=== PATIENT | male | born 1955 | race Caucasian/White ===

== ENCOUNTER → 2021-09-16 09:22 | Outpatient (BNVA) | payer OTHER, SELFPAY | PROVIDERS: PCP Internal Medicine; Visit Provider Physician Assistant | DX: Z13.89 Encounter for screening for other disorder (principal) ==

== ENCOUNTER → 2021-09-18 12:48 | Outpatient (BNVA) | payer OTHER, SELFPAY | PROVIDERS: PCP Internal Medicine; Visit Provider Physician Assistant | DX: Z13.89 Encounter for screening for other disorder (principal) ==

== ENCOUNTER → 2021-10-15 09:53 | Outpatient (BNVA) | payer OTHER, SELFPAY | PROVIDERS: PCP Internal Medicine; Referring Provider Internal Medicine; Visit Provider Physician Assistant | DX: E66.9 Obesity, unspecified (principal) ==

== ENCOUNTER 2021-11-05 07:48 | Outpatient (REF) | payer MEDICARE, SELFPAY | END 2021-11-05 07:49 | disposition home or self-care (01) | LOC: HO.US 07:48 | PROVIDERS: PCP Internal Medicine; Visit Provider Physician Assistant | DX: Z13.89 Encounter for screening for other disorder (principal) ==

== ENCOUNTER → 2021-12-07 14:58 | Outpatient (BNVA) | payer OTHER, MEDICARE, SELFPAY | PROVIDERS: PCP Internal Medicine; Visit Provider Counselor Mental Health | DX: F43.20 Adjustment disorder, unspecified (principal); E66.9 Obesity, unspecified; Z90.3 Acquired absence of stomach [part of] | CPT/HCPCS: 90791 ==

== ENCOUNTER 2021-12-15 06:32 | Outpatient (REF) | payer MEDICARE, SELFPAY ==
--- NOTE | ~2021-12-15 | XR_ITS ---
EXAMINATION: XR CHEST CLINICAL INFORMATION: Vasquez's esophagus without dysplasia COMPARISON: None TECHNIQUE: 2 views of the chest were obtained. FINDINGS: No significant abnormality is noted involving the heart, lungs, mediastinum, bony thorax or soft tissues. XR/XR chest 2V IMPRESSION: Unremarkable chest examination.
[2021-12-15 06:45] LABS: MANUAL DIFF FLAG NO
--- NOTE | 2021-12-15 07:01 | ECG_ITS ---
Test Reason : barretts esophagus Blood Pressure : / mmHG Vent. Rate : 060 BPM Atrial Rate : 060 BPM P-R Int : 174 ms QRS Dur : 092 ms QT Int : 404 ms P-R-T Axes : 052 022 014 degrees QTc Int : 404 ms Normal sinus rhythm Normal ECG No previous ECGs available Referred By: [place]ia Carreon Electronically Signed By:Shailesh Snider
[2021-12-15 07:27] LABS: Basophils Absolute Auto 0.1 X10*3/uL (0.0-0.2); Basophils Percent Auto 0.8 % (0-2); Eosinophils Absolute Auto 0.4 X10*3/uL (0.0-0.4); Eosinophils Percent Auto 5.1 % (0-4); Hematocrit 42.6 % (42.0-52.0); Hemoglobin 14.2 g/dl (14.0-18.0); Imm Gran Abs Auto 0.01 X10*3/uL (0.00-0.03); Imm Gran Pct Auto 0.1 % (0.0-0.4); Lymphocytes Absolute Auto 2.2 X10*3/uL (1.2-4.9); Lymphocytes Percent Auto 30.8 % (20-40); Mean Corpuscular HGB Conc 33.3 g/dl (31.0-36.0); Mean Corpuscular Hemoglobin 30.9 pg (27.0-33.0); Mean Corpuscular Volume 92.8 fL (80.0-98.0); Mean Platelet Volume 11.8 fL (9.4-12.4); Monocytes Absolute Auto 0.7 X10*3/uL (0.1-1.2); Monocytes Percent Auto 9.4 % (2-11); Neutrophils Absolute Auto 3.9 x10*3/uL (2.0-8.3); Neutrophils Percent Auto 53.8 % (45-73); Platelet Count 206 X10*3/uL (160-400); Red Blood Count 4.59 X10*6/uL (4.60-5.80); Red Cell Distribution Width 12.7 % (11.0-16.0); White Blood Count 7.2 X10*3/uL (4.8-10.8)
[2021-12-15 07:57] LABS: Estimated Average Glucose 105 mg/dL; Hemoglobin A1c % 5.3 %
[2021-12-15 08:03] LABS: Alanine Aminotransferase 23 U/L (0-40); Albumin Level 4.3 g/dL (3.5-5.0); Alkaline Phosphatase 70 U/L (39-117); Anion Gap 12 (12-20); Aspartate Amino Transferase 24 U/L (5-37); Bilirubin Total 0.5 mg/dL (0.0-1.0); Blood Urea Nitrogen 24 mg/dL (9-16); C Reactive Protein 0.14 mg/dL (< or = 0.50); Calcium 9.6 mg/dL (8.4-10.2); Carbon Dioxide 28 mmol/L (22-29); Chloride 106 mmol/L (96-108); Cholesterol 155 mg/dL; Estimated Glomerular Filt Rate 55; Glucose Random 102 mg/dL (60-115); HDL Cholesterol 43 mg/dL; Iron 120 mcg/dL (45-160); LDL Cholesterol Calculated 88 mg/dl; Percent Iron Saturation 41 % (15-50); Potassium 4.5 mmol/L (3.3-5.1); Sodium 141 mmol/L (135-145); Total Iron Binding Capacity 294 mcg/dL (228-428); Total Protein 6.8 g/dL (6.5-8.0); Triglycerides 123 mg/dL; Unsaturated Iron Binding 174 ug/dL
[2021-12-15 08:13] LABS: Ferritin 173 ng/mL (20-250); TSH reflex Free T4 2.34 uIU/mL (0.32-4.0); Vitamin D 25-OH Total 30.4 ng/mL (>30)
[2021-12-15 08:33] LABS: Folate 6.1 ng/mL (> or = 4.0); Vitamin B12 548 pg/mL (200-900)
[2021-12-15 08:47] LABS: Insulin 8 uU/mL (2-29)
[2021-12-16 12:56] LABS: Calcium (PTHI) 9.9 mg/dL (8.6-10.3); PTHI 32 pg/mL (16-77)
[2021-12-20 12:17] LABS: Vitamin B1 <6 nmol/L (8-30)
[2021-12-21 16:32] LABS: Zinc 75 mcg/dL (60-130)
[2021-12-23 11:41] LABS: Vitamin A 61 mcg/dL (38-98)
== END 2021-12-15 06:33 | disposition home or self-care (01) ==
LOC: HO.XRAY 06:32
PROVIDERS: PCP Internal Medicine; Visit Provider Physician Assistant
DX: Z01.818 Encounter for other preprocedural examination (principal); K21.9 Gastro-esophageal reflux disease without esophagitis; K22.70 Barrett's esophagus without dysplasia; Z90.3 Acquired absence of stomach [part of]
CPT/HCPCS: 36415; 71046; 80053; 80061; 82306; 82607; 82728; 82746; 83036; 83525; 83540; 83970; 84425; 84443; 84590; 84630; 85025; 86140; 93005

== ENCOUNTER → 2021-12-17 09:44 | Outpatient (BNVA) | payer MEDICARE, SELFPAY | PROVIDERS: PCP Internal Medicine; Visit Provider Dietitian, Registered | DX: E66.9 Obesity, unspecified (principal); Z68.33 Body mass index [BMI] 33.0-33.9, adult; Z98.84 Bariatric surgery status; Z71.3 Dietary counseling and surveillance | CPT/HCPCS: 97802 ==

== ENCOUNTER 2021-12-22 08:51 | Outpatient (REF) | payer MEDICARE, SELFPAY ==
[2021-12-24 14:10] LABS: H Pylori Breath Test Negative (Negative)
== END 2021-12-22 08:52 | disposition home or self-care (01) ==
LOC: CF 08:51
PROVIDERS: PCP Internal Medicine; Visit Provider Physician Assistant
DX: Z01.818 Encounter for other preprocedural examination (principal); K21.9 Gastro-esophageal reflux disease without esophagitis; E66.9 Obesity, unspecified; K22.70 Barrett's esophagus without dysplasia; Z90.3 Acquired absence of stomach [part of]
CPT/HCPCS: 36415; 83013; 99211; 99212

== ENCOUNTER 2022-01-06 07:51 | Outpatient (REF) | payer MEDICARE, SELFPAY ==
--- NOTE | ~2022-01-06 | FL_ITS ---
EXAMINATION: XR GI SERIES CLINICAL INFORMATION: Gastric surgery. COMPARISON: None. TECHNIQUE: Routine upper GI air-contrast study was performed in upright and lying position. FINDINGS: Following oral administration of thick barium and effervescent granules, there is normal propagation of bolus from the oral cavity through the pharynx an esophagus into the stomach. There are secondary and tertiary peristalsis in the distal esophagus but no obstruction seen. Focal mucosal thickening along the anterior mid esophagus is noted resulting in filling defect. This could be muscular hypertrophy due to prominent secondary and tertiary peristalsis. The GE junction is widely patent. There are gastric sleeve surgical changes with a paraesophageal small hiatal hernia. Mild gastroesophageal reflux seen in supine position. The rest of the visualized stomach, duodenal bulb and the sweep are normal. The mucosal pattern is normal. FLUOROSCOPY TIME: 2.5 minutes. DOSE AREA PRODUCT: 45.832 uGy-m2 (microgray-meter squared). FL/FL upper GI series IMPRESSION: Patent esophagus with prominent secondary and tertiary peristalsis. There is a small transitional filling defect or mural thickening in mid esophagus which could be secondary to muscular hypertrophy. No persistent defects seen. Gastric sleeve surgery with a paraesophageal moderate-sized hiatal hernia and mild reflux.
--- NOTE | ~2022-01-06 | US_ITS ---
EXAMINATION: US COMPLETE ABDOMEN WITH LIVER ELASTOGRAPHY CLINICAL INFORMATION: Gallstone. COMPARISON: Previous CT of the abdomen and pelvis November 2020. TECHNIQUE: Real-time imaging of the abdominal viscera. Noninvasive ultrasound liver fibrosis assessment is performed using Mildred ElastPQ point quantification shear wave elastography (2D-SWE) with a C5-2 MHz transducer. Multiple elastography samples are obtained. FINDINGS: PANCREAS: Not well visualized due to bowel gas. ABDOMINAL AORTA: The upper abdominal aorta is not well visualized due to bowel gas. The mid and distal abdominal aorta is normal in caliber. INFERIOR VENA CAVA: Visualized portions are normal. LIVER: Normal. The liver demonstrates normal size, contour and echogenicity. No focal lesion or intrahepatic biliary duct dilatation. The right lobe measures 18.5 cm in length. The left lobe measures 6.5 cm in length. Portal flow is normal/hepatopedal. Shear wave liver elastography median stiffness is 1.4 m/s (reference: normal median stiffness is 1.3 m/s or less). IQR/median stiffness to assess sampling precision is 0.12 (reference: good quality data set is IQR/median stiffness of 0.15 or less). GALLBLADDER: Normal. The gallbladder is physiologically distended without evidence of stones, sludge, polyps, wall thickening or pericholecystic fluid. COMMON BILE DUCT: Normal in caliber measuring 0.2 cm in diameter. RIGHT KIDNEY: There is a small 9 x 8 x 4 mm cyst in the upper pole. No hydronephrosis. No renal calculi or mass. The kidney measures 11.4 cm in maximum dimension. LEFT KIDNEY: There are 3 small cysts in the mid and lower pole, largest measuring 1 cm. No hydronephrosis. No renal calculi or mass. The kidney measures 12.3 cm in maximum dimension. SPLEEN: Normal. The spleen measures 10.2 cm in maximum dimension. FREE FLUID: None. US/US abdomen comp w elastography IMPRESSION: 1. Normal-appearing gallbladder. No gallstones seen. Small bilateral renal cysts. Nonvisualization of the pancreas and aorta. 2. Liver elastography: Adequate liver sampling. In the absence of other known clinical signs, rules out compensated advanced chronic liver disease. REFERENCE: Society of Radiologists in Ultrasound Liver Stiffness Thresholds (2020): LIVER STIFFNESS THRESHOLDS: *Liver Stiffness equal or less than 1.3 m/s: High probability of being normal. *Liver Stiffness less than 1.7 m/s: In the absence of other known clinical signs, rules out compensated advanced chronic liver disease. *Liver Stiffness 1.7-2.1 m/s: Suggestive of compensated advanced chronic liver disease but need further test for confirmation. *Liver Stiffness over 2.1 m/s: Rules in compensated advanced chronic liver disease. *Liver Stiffness over 2.4 m/s: Suggestive of clinically significant portal hypertension. QUALITY OF DATA SET: *IQR/Median value equal or less than 0.15 implies a quality data set. *IQR/Median value over 0.15 implies a poor quality data set. SIGNIFICANT CHANGE FROM PRIOR EXAM: Significant change if liver stiffness measurement is 10% or greater from prior exam. OTHER CONSIDERATIONS: The stage of liver fibrosis may be overestimated in the setting of acute hepatitis, liver inflammation, elevated liver function tests, hepatic vascular congestion, obstructive cholestasis, non-fasting state, and infiltrative diseases such as amyloidosis and lymphoma. In some patients with NAFLD, the liver stiffness thresholds for compensated advanced chronic liver disease may be lower. In causes other than viral hepatitis and NAFLD, liver stiffness thresholds are not well established.
== END 2022-01-06 07:52 | disposition home or self-care (01) ==
LOC: HO.US 07:51
PROVIDERS: Visit Provider Surgery
DX: K80.20 Calculus of gallbladder without cholecystitis without obstruction (principal); E66.9 Obesity, unspecified; K21.9 Gastro-esophageal reflux disease without esophagitis; Z90.3 Acquired absence of stomach [part of]
CPT/HCPCS: 74240; 76705; 76981

== ENCOUNTER 2022-01-15 11:46 | Day surgery (SDC) | payer MEDICARE, SELFPAY ==
[2022-01-11 10:50] VITALS: BMI 33.0
--- NOTE | 2022-01-14 09:30 | P.CONAN_ITS ---
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 Family History Family History Father Diabetes Heart muscle disorder caused by another medical condition Mother Glaucoma High blood cholesterol Surgical History Surgical History H/O gastric sleeve Social History Social History Alcohol intake: former Patient Tobacco Use Status: Former Tobacco user Are you DNR?: No Advance Directives: No Advance Directives Information Provided: Yes Meds Allergies Allergy/AdvReac Type Severity Reaction Status Date / Time No Known Allergies Allergy Verified 12/22/21 09:14 Home Medications Medication Instructions Recorded Confirmed Last Taken Type albuterol sulfate 90 mcg/actuation 0 mcg inhalation 09/16/21 12/03/21 Unknown History aerosol inhaler atorvastatin 80 mg tablet 80 mg PO DAILY 09/16/21 12/03/21 Unknown History azelastine 137 mcg (0.1 %) nasal intranasal 09/16/21 12/03/21 Unknown History spray aerosol bupropion HCl 150 mg 24 hr tablet, 150 mg PO QAM 09/16/21 12/03/21 Unknown History extended release finasteride 5 mg tablet 5 mg PO DAILY 09/16/21 12/03/21 Unknown History fludrocortisone 0.1 mg tablet 0.1 mg PO DAILY 09/16/21 12/03/21 Unknown History fluticasone 500 mcg-salmeterol 50 1 ea PO BID 09/16/21 12/03/21 Unknown History mcg/dose blistr powdr for inhalation (Wixela Inhub) sertraline 100 mg tablet 100 mg PO DAILY 09/16/21 12/03/21 Unknown History lansoprazole 30 mg capsule,delayed 30 mg PO BID 12/03/21 12/03/21 Unknown History release Exam Exam Date and Time: January 14, 2022 0930 Height,Weight and Vital Signs: Height 5 ft 9 in Weight 101.605 kg Pertinent Lab Results Pertinent Lab Results: Laboratory Tests 12/15/21 12/15/21 06:43 06:43 WBC 7.2 Hgb 14.2 Hct 42.6 Plt Count 206 Sodium 141 Potassium 4.5 Chloride 106 Carbon Dioxide 28 BUN 24 H Creatinine 1.30 Narrative Narrative: EKG 11/2021 Vent. Rate : 060 BPM ? ? Atrial Rate : 060 BPM ?? P-R Int : 174 ms? QRS Dur : 092 ms ? ? QT Int : 404 ms ? ? ? P-R-T Axes : 052 022 014 degrees ?? QTc Int : 404 ms ? 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 Family History Family History Father Diabetes Heart muscle disorder caused by another medical condition Mother Glaucoma High blood cholesterol Family history of problems with anesthesia: No Surgical History Surgical History H/O gastric sleeve History of Problems with Anesthesia: No Social History Social History Alcohol intake: former Patient Tobacco Use Status: Former Tobacco user Are you DNR?: No Advance Directives: No Advance Directives Information Provided: Yes Meds Allergies Allergy/AdvReac Type Severity Reaction Status Date / Time No Known Allergies Allergy Verified 12/22/21 09:14 Home Medications Medication Instructions Recorded Confirmed Last Taken Type albuterol sulfate 90 mcg/actuation 0 mcg inhalation 09/16/21 12/03/21 Unknown History aerosol inhaler atorvastatin 80 mg tablet 80 mg PO DAILY 09/16/21 12/03/21 Unknown History azelastine 137 mcg (0.1 %) nasal intranasal 09/16/21 12/03/21 Unknown History spray aerosol bupropion HCl 150 mg 24 hr tablet, 150 mg PO QAM 09/16/21 12/03/21 Unknown History extended release finasteride 5 mg tablet 5 mg PO DAILY 09/16/21 12/03/21 Unknown History fludrocortisone 0.1 mg tablet 0.1 mg PO DAILY 09/16/21 12/03/21 Unknown History fluticasone 500 mcg-salmeterol 50 1 ea PO BID 09/16/21 12/03/21 Unknown History mcg/dose blistr powdr for inhalation (Wixela Inhub) sertraline 100 mg tablet 100 mg PO DAILY 09/16/21 12/03/21 Unknown History lansoprazole 30 mg capsule,delayed 30 mg PO BID 12/03/21 12/03/21 Unknown History release Exam Airway Mallampati Class: III TM Dist: >3cm Neck ROM: Full Assessment and Plan Assessment Anesthesia Assessment: Anesthesia Plan Discussed Final Anesthetic Review Family History of Problems with Anesthesia: No History of Problems with Anesthesia: No NPO: Yes ASA Class: III Final Preanesthetic Review: No Changes in Pt Med Stat, Meds/Allgs Chart Reviewed, Consent Obtained/Reviewed and Anes Risks/Benef Reviewed Patient Risk: Intermediate Procedure Risk: Low Anesthetic Plan Anesthetic Plan: MAC: Disposition: Standard PACU
--- NOTE | 2022-01-14 23:02 | MHC.SHP ---
Pre-Procedural Eval Section A Date of Service: 01/14/22 The patient is an INPATIENT: No The History & Physical has been completed within 30 days and I have reviewed it.: Yes Section B Chief Complaint: Bariatric surgery status Relevant Family History (Specify if Yes): No Relevant Social History: None Present Medications: see Short Stay Collaborative assessment Medical History: No relevant PMH History of Previous Operations: Relevant previous surgery/procedure and date(s) (sleeve gastrectomy) Allergies: Allergies Allergy/AdvReac Type Severity Reaction Status Date / Time No Known Allergies Allergy Verified 12/22/21 09:14 Review of Systems Sugical H&P ROS: Negative: Constitution, Cardiovascular, Respiratory, Neurological, Psychiatric, Hem-Onc, Allergic/Immunologic, Gastrointestinal, Genitourinary, Musculoskeletal, Integumentary, Endocrine and Eyes/Ears/Nose/Throat Exam Surgical H&P Exam: Normal: HEENT, Normal: Heart, Normal: Lungs, Normal: Extremities, Normal: Abdomen, Normal: Skin and Normal: Neurological Plan Diagnosis/Plan: Unchanged I have reviewed the history and physical and performed a pertinent physical examination on my patient. No changes have occurred unless specified.
[2022-01-15 12:01] VITALS: BP 110/92; PULSE 81; RESP 20; TEMP 36.6; O2SAT 97
[2022-01-15] MEDS: Lactated Ringers 1,000 ML 100 ML IVCONT (12:20)
--- NOTE | 2022-01-15 12:32 | P.BOP_ITS ---
Brief Operative Note Date of Service: 01/15/22 Pre-op diagnosis: GERD, paraesophageal hernia, s/p sleeve gastrectomy Post-op diagnosis: same Procedure: PROCEDURE DATE: 01/15/2022 PREOPERATIVE DIAGNOSIS: GERD, s/p sleeve gastrectomy POSTOPERATIVE DIAGNOSIS: ?Same as above. 1) moderate hiatal hernia, 2) gastric fundus redundancy, 3) incomplete antral resection PROCEDURE: [id number] with biopsies Surgeon: ?Tanmay Ramos M.D.. Ph.D. Pie Maker Machine: None ? Anesthesia: IV sedation Estimated blood loss: ?Minimal FINDINGS AND PROCEDURE: ? OPERATIVE INDICATIONS: ?The patient is a 66 year old male known to me who underwent a laparoscopic sleeve gastrectomy by Dr. Dueñas. The patient had inadequate weight loss and complains of severe GERD which has worsened after the sleeve gastrectomy.? Based on this information I recommended an upper endoscopy to evaluate the patient's symptoms. Risks and complications of the surgery were discussed with the patient in advance particularly the possibility of perforation or bleeding that may require surgical intervention. The patient understood the risks and was in agreement with the plan. ? PROCEDURE: After informed consent was obtained by the patient, the patient was ?transferred to the Operating Room and was placed in the supine position.? After successful induction of IV sedation, a mouth block was inserted and the patient was placed in the left lateral decubitus position. An upper endoscopy was performed next, the oropharynx and esophagus appeared within the normal limits. There was a 4cm hiatal hernia. There was retained food within the hiatal hernia suggestive of poor gastric emptying. The z-line was smooth. Two biopsies were obtained from the distal esophagus 2-3 cm proximal to the GE junction and two additional biopsies from the GE junction. The sleeve was entered and it appeared to be of normal size and even caliber. There was mild gastritis at distal antrum. There was no stricture or ulcer. Biopsies were obtained from the proximal sleeve as well as the distal antrum. The antrum was also incompletely resected. No significant bleeding was noted from any of the biopsy sites. The scope was then advanced into the duodenum which appeared to be normal as well. At that point the duodenum ?and the sleeve were decompressed and the scope was withdrawn from the patient's mouth. The patient extubated and was transferred in stable condition to the Recovery Room for further care. I was present and performed all steps of the procedure. There were no residents to assist with this case. Tanmay Ramos M.D., Ph.D. Surgeon: Stevenson Ramos MD Anesthesia: MAC Was an Pie Maker Machine used for this Procedure?: No Estimated blood loss (mL): 0 IV fluids (mL): 400 Urine output (mL): 0 (No Hinojosa to record) Pathology: other Condition: stable Disposition: PACU
[2022-01-15 14:08] VITALS: BP 108/61; PULSE 84; RESP 16; TEMP 36.3; O2SAT 98
[2022-01-15 14:23] VITALS: BP 112/70; PULSE 63; RESP 18; TEMP 36.3; O2SAT 95
[2022-01-15 14:38] VITALS: BP 118/71; PULSE 71; RESP 18; TEMP 36.3; O2SAT 95
== END 2022-01-15 14:58 | disposition home or self-care (01) ==
PROVIDERS: PCP Internal Medicine; Visit Provider Surgery
PROC: 0DJ08ZZ Inspection of Upper Intestinal Tract, Via Natural or Artificial Opening Endoscopic (ICD-10-PCS; CPT 43235; principal; 2022-01-15 13:00)
DX: K21.9 Gastro-esophageal reflux disease without esophagitis (principal); Z98.84 Bariatric surgery status; Z90.3 Acquired absence of stomach [part of]; K29.60 Other gastritis without bleeding; K44.9 Diaphragmatic hernia without obstruction or gangrene; E66.9 Obesity, unspecified; Z68.33 Body mass index [BMI] 33.0-33.9, adult; Z98.1 Arthrodesis status
CPT/HCPCS: 43239; 88305; 88342

== ENCOUNTER → 2022-01-18 08:14 | Outpatient (BNVA) | payer MEDICARE, SELFPAY | PROVIDERS: PCP Internal Medicine; Visit Provider Surgery | DX: E66.9 Obesity, unspecified (principal); Z68.33 Body mass index [BMI] 33.0-33.9, adult; E78.5 Hyperlipidemia, unspecified; K21.9 Gastro-esophageal reflux disease without esophagitis; R11.0 Nausea; Z01.818 Encounter for other preprocedural examination; G47.30 Sleep apnea, unspecified; Z71.3 Dietary counseling and surveillance | CPT/HCPCS: Q3014 ==

== ENCOUNTER 2022-02-02 08:43 | Inpatient (IN) | payer MEDICARE, SELFPAY ==
[2022-01-25 10:41] LABS: Basophils Absolute Auto 0.1 X10*3/uL (0.0-0.2); Basophils Percent Auto 1.2 % (0-2); Eosinophils Absolute Auto 0.4 X10*3/uL (0.0-0.4); Eosinophils Percent Auto 6.9 % (0-4); Hematocrit 41.9 % (42.0-52.0); Hemoglobin 14.4 g/dl (14.0-18.0); Imm Gran Abs Auto 0.01 X10*3/uL (0.00-0.03); Imm Gran Pct Auto 0.2 % (0.0-0.4); Lymphocytes Absolute Auto 1.8 X10*3/uL (1.2-4.9); Lymphocytes Percent Auto 30.5 % (20-40); MANUAL DIFF FLAG SCAN; Mean Corpuscular HGB Conc 34.4 g/dl (31.0-36.0); Mean Corpuscular Hemoglobin 31.6 pg (27.0-33.0); Mean Corpuscular Volume 92.1 fL (80.0-98.0); Monocytes Absolute Auto 0.6 X10*3/uL (0.1-1.2); Neutrophils Percent Auto 51.2 % (45-73); PLT CLUMP 1; Red Blood Count 4.55 X10*6/uL (4.60-5.80); Red Cell Distribution Width 13.3 % (11.0-16.0); SCAN SMEAR FLAG 1
[2022-01-25 11:02] LABS: Prothrombin Time 11.1 SEC (10.0-13.1)
[2022-01-25 11:05] LABS: Partial Thromboplastin Time 35.6 SEC (26.0-36.4)
[2022-01-25 11:09] LABS: Platelet Count 192 X10*3/uL (160-400); White Blood Count 5.9 X10*3/uL (4.8-10.8)
[2022-01-25 11:10] LABS: SLIDE REVIEW VERIFIED
[2022-01-25 11:18] LABS: Alanine Aminotransferase 31 U/L (0-40); Albumin Level 4.3 g/dL (3.5-5.0); Alkaline Phosphatase 68 U/L (39-117); Anion Gap 14 (12-20); Aspartate Amino Transferase 27 U/L (5-37); Bilirubin Total 0.4 mg/dL (0.0-1.0); Blood Urea Nitrogen 20 mg/dL (9-16); C Reactive Protein 0.11 mg/dL (< or = 0.50); Calcium 9.2 mg/dL (8.4-10.2); Carbon Dioxide 25 mmol/L (22-29); Chloride 108 mmol/L (96-108); Cholesterol 166 mg/dL; Estimated Glomerular Filt Rate > 60; Glucose Random 96 mg/dL (60-115); HDL Cholesterol 50 mg/dL; LDL Cholesterol Calculated 100 mg/dl; Potassium 4.5 mmol/L (3.3-5.1); Sodium 142 mmol/L (135-145); Total Protein 6.7 g/dL (6.5-8.0); Triglycerides 81 mg/dL
[2022-01-25 11:38] LABS: Estimated Average Glucose 103 mg/dL; Hemoglobin A1c % 5.2 %
[2022-01-25 11:48] LABS: TSH reflex Free T4 1.48 uIU/mL (0.32-4.0)
[2022-01-25 12:23] LABS: Insulin 10 uU/mL (2-29)
[2022-01-27 11:02] LABS: Calcium (PTHI) 9.2 mg/dL (8.6-10.3); PTHI 82 pg/mL (16-77)
[2022-01-27 12:10] VITALS: BMI 32.5
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
--- NOTE | 2022-01-29 23:04 | MHC.SHP ---
Pre-Procedural Eval Section A Date of Service: 01/29/22 The patient is an INPATIENT: Yes The History & Physical has been completed within 30 days and I have reviewed it.: Yes Section B Chief Complaint: obesity Relevant Family History (Specify if Yes): No Relevant Social History: None Present Medications: None Medical History: No relevant PMH History of Previous Operations: Relevant previous surgery/procedure and date(s) (Laparoscopic sleeve gastrectomy) Allergies: Allergies Allergy/AdvReac Type Severity Reaction Status Date / Time No Known Allergies Allergy Verified 12/22/21 09:14 Review of Systems Sugical H&P ROS: Negative: Constitution, Cardiovascular, Respiratory, Neurological, Psychiatric, Hem-Onc, Allergic/Immunologic, Gastrointestinal, Genitourinary, Musculoskeletal, Integumentary, Endocrine and Eyes/Ears/Nose/Throat Exam Surgical H&P Exam: Normal: HEENT, Normal: Heart, Normal: Lungs, Normal: Extremities, Normal: Abdomen, Normal: Skin and Normal: Neurological Plan Diagnosis/Plan: Unchanged I have reviewed the history and physical and performed a pertinent physical examination on my patient. No changes have occurred unless specified.
[2022-02-02] VITALS (13 sets, daily range): BP systolic 129–163; BP diastolic 63–92; PULSE 74–102; RESP 10–18; TEMP 36.4–36.9; O2SAT 92–99
[2022-02-02 09:03] LABS: COVID-19 Test Negative (Negative); IDNOW Serial# 16C4AD1C
[2022-02-02] MEDS: Lactated Ringers 1,000 ML 100 ML IVCONT ×2 (09:08→14:00)
--- NOTE | 2022-02-02 10:04 | PM.OP ---
Brief Operative Note Date of Service: 02/02/22 Pre-op diagnosis: Severe obesity and comorbidities (see below) Post-op diagnosis: same Procedure: INITIAL PATIENT BMI ON PRESENTATION AT OUR OFFICE: 35.8 kg/m2 LAST BMI BEFORE SURGERY: 32.3 kg/m2 COMORBIDITIES: Sleep apnea, GERD, diaphragmatic hernia, hyperlipidemia, asthma, depression, anxiety, PTSD, BPH The patient presented to the Weight Management Program with significant obesity that was negatively impacting the patient's comorbidities as listed above. The program is a phased program with a special focus on preoperative medical weight management to promote substantial weight loss and prepare the patients for the second phase of the program: bariatric surgery. The patient participated in an intensive weekly lifestyle intervention and exercise program during which the patient has lost between the initial office visit and the last preoperative visit 24.9lbs, or 10.26% of initial actual body weight. It was deemed appropriate for the patient to now have bariatric surgery. In light of the current Covid-19 pandemic and the well documented strong association of obesity and increased risk of worse outcomes if infected with Covid-19 (REFERENCES:https://pubmed.ncbi.nlm.nih.gov/66778804/, https://pubmed.ncbi.nlm.nih.gov/07833000/), any delay in undergoing bariatric surgery may lead to the patient's worsening health condition and increased risk of more severe Covid-19 disease if infected. In addition a recent study from [facility] published in [employer] on 05/25/2021 ([email or web address]) found that, among patients with obesity, substantial weight loss achieved with surgery was associated with improved outcomes of COVID-19 infection. The findings suggest that obesity can be a modifiable risk factor for the severity of COVID-19 infection. In addition, the patient met the BMI-criteria for bariatric surgery based on the BMI on initial presentation. The patient should not be penalized for achieving such weight loss because it is not sustainable long-term without surgical intervention and it was achieved in preparation for bariatric surgery under my direction and based on my published research ([email or web address]).[email or web address] and [email or web address].[email or web address]/article/[email or web address]/pdf) that a 10% preoperative weight loss improves long-term weight loss after surgery and reduces perioperative complications. Insurance carriers such as [facility] have endorsed my recommendations and have included in their policies criteria to include a 10% preoperative weight loss requirement. PROCEDURE: Esophago-gastroscopy, laparoscopic lysis of adhesions INDICATIONS: This is a 66 year-old male who was electively scheduled for laparoscopic, possibly open sleeve gastrectomy revision. The patient has a previous sleeve gastrectomy at [facility] with Dr. Dueñas. Preoperative work-up including an UGI and EGD is suggestive of a very large proximal pouch of retained gastric fundus as well as incomplete distal antral resection. The objective of this operation is to redo the sleeve. The risks and complications of the procedure were discussed with the patient in advance, particularly the possibility of ; pulmonary embolism; staple line leak; bleeding; GERD; cardiac, pulmonary, or renal complications; as well as long-term problems such as insufficient weight loss, vitamin deficiency, strictures, or ulcers. The patient understood all the risks, and was in agreement to proceed with surgery. DESCRIPTION OF PROCEDURE: After informed consent was obtained from the patient, the patient was given preoperative antibiotics, and was transferred to the operating room. After successful induction of general anesthesia, pneumatic compression devices were placed on both lower extremities. An upper endoscopy was performed next. The oropharynx and esophagus appeared to be within normal limits. There was no significant diaphragmatic hernia present. The stomach was entered. Then after all fluid and air were suctioned and the stomach was fully decompressed, the scope was withdrawn and secured in the mid esophagus. The patient was then prepped and draped in the usual sterile manner, and abdominal access was established at the right upper quadrant with the Omar technique. A 12 mm blunt port was inserted, and the abdomen was insufflated with CO2 to a pressure of 15 mmHg. Under direct visualization, additional ports were placed, specifically two 5 mm Versi-step ports to the left upper quadrant, and a 5 mm Versi-Step port to the right upper quadrant. 1% lidocaine plain was used to infiltrate all port sites as well as all fascia defects. There were extensive adhesions in the abdomen from previous sleeve gastrectomy involving the left lobe of the liver, the omentum and the anterior abdominal wall. Those were lysed completely with the ultrasonic device (Thunderbeat).. Following that, the patient was placed in a steep reverse Trendelenburg position. An additional 5 mm port was placed to the right flank for the Mediflex retractor that was used to retract the left lobe of the liver. The gastro-esophageal fat pad was opened with the ultrasonic device (Thunderbeat, Olympus) and the anterior esophagus and hiatus were exposed. The angle of His was opened with the ultrasonic device the fundus of the stomach from any diaphragmatic and splenic attachments. I then opened the gastrocolic ligament between the transverse colon and the greater curvature of the stomach with the ultrasonic device to enter the lesser sac. This was very difficult as there were dense adhesions from previous sleeve gastrectomy. The posterior gastric wall was attached to the pancreas and extensive and tedious dissection was required to free the stomach. There was an area of the posterior stomach densely adherent to the retrogastric tissues. I encountered some bleeding which was quickly controlled. However there was no clear plane of dissection and this area was left attached posteriorly. The dissection continued all the way to the angle of His until the left kriss was completely dissected at its entirety. There were extremely thick adhesions which made dissection very difficult without clear plain of dissection Adhesiolysis took approximately 120 min to complete with a total operative time of 4 hours. The right kriss was mobilized first and I was able to dissect the esophagus completely from the right kriss in 180 degree area. There was no significant diaphragmatic hernia present. Complete dissection of the left kriss was not possible due to dense adhesions between the left kriss and the esophagus without clear plane. Because the esophagus was not completely dissected and additionally I was not able to dissect completely the sleeve from posterior retrogastric attachments, further resection of the redundant stomach was not made. An upper endoscopy was performed. There was no injury in the esophagus or stomach. At that point the gastroscope was withdrawn from the patient?s mouth while we were decompressing the bowel and the stomach from any remaining air. I looked into the lesser sac to see how the sleeve was situating and it was situating well. There was no bleeding from the areas of dissection,, spleen, or short gastric vessels. The Mediflex retractor was removed, and the undersurface of the liver was inspected and there was no bleeding. The patient was placed in supine position. I closed the fascial defect of the 12 mm port site with a figure of eight #1 Polysorb suture. Then 30cc Ropivacaine plain with 10 mg of Dexamethasone were used to infiltrate the fascial closure as well as all skin incisions. At this point, the abdomen was deflated, all ports were removed under direct vision, and no bleeding was noted from any of the port sites. The skin incisions were irrigated with saline and were closed with 4-0 absorbable monofilament sutures. Steri-Strips and OpSites were used to cover all incisions. The patient was extubated and was transferred in stable condition to the recovery room for further care. Tanmay Ramos MD, PhD, FACS Surgeon: Stevenson Ramos MD Anesthesia: GETA, local and other (TAP block ) Was an Dispatch Supervisor used for this Procedure?: Yes Dispatch Supervisor: [place] Carreon Estimated blood loss (mL): 10 IV fluids (mL): 2,500 Urine output (mL): 0 (No Hinojosa to record) Pathology: none sent Condition: stable Disposition: PACU
--- NOTE | 2022-02-02 10:06 | PHA.MEDREC ---
Pharmacy Consult ? Medication Reconciliation Pharmacy has completed the medication reconciliation. Reviewed med rec done by nursing
--- NOTE | 2022-02-02 10:08 | PM.PNGS ---
Subjective Subjective Date of Service: 02/03/22 Interval history: Patient has mild incisional pain, but was able to ambulate and use the incentive spirometer. He is tolerating phase 1 bariatric diet Physical Exam Vital Signs: Vital Signs: Last Vital Signs Temp 98.1 F 02/02/22 09:12 Pulse 74 02/02/22 09:12 Resp 18 02/02/22 09:12 BP 129/79 02/02/22 09:12 Pulse Ox 98 02/02/22 09:12 O2 Del Method 02/02/22 09:12 BMI result Body Mass Index 32.5 GI: Inspection: Yes normal to inspection, Yes incision (clean, dry and intact) and Yes obesity Extrem: Right lower extremity: normal to inspection (no calf tenderness) Left lower extremity: normal to inspection (no calf tenderness) Objective Data Active Medications Albuterol Sulfate (Albuterol Sulfate (0.083%) 2.5 Mg/3 Ml Vial.Neb) 2.5 mg INHALE ONCE PRN PRN Reason: Shortness of Breath/Wheezing Lactated Ringer's (Lr) 1,000 mls @ 100 mls/hr IVCONT .Q10H [facility] Last Admin: 02/02/22 09:08 Dose: 100 mls/hr Documented By: SUNI Lactated Ringer's (Lr) 1,000 mls @ 999 mls/hr IV .Q1H1M [facility] Stop: 02/02/22 10:45 Labs CBC & Chem 7: 02/03/22 05:20 02/03/22 05:20 Labs: Laboratory Results - last 24 hr 02/02/22 08:35 COVID-19 ([facility]) Negative COVID-19 Clin Com See Note Procedures Date of Service Date of Service: 02/03/22 Progress Note: A&P Assessment and plan (1) Obesity: Status: Acute Assessment and Plan: s/p laparoscopic lysis of adhesions Doing well Check am labs. If OK, will discharge home? (2) BMI 32.0-32.9,adult: Status: Acute (3) GERD (gastroesophageal reflux disease): Status: Acute (4) Hiatal hernia: Status: Acute (5) Asthma: Status: Acute (6) Cholelithiasis: Status: Acute (7) Sleep apnea: Status: Acute (8) BPH (benign prostatic hyperplasia): Status: Acute (9) Elevated cholesterol: Status: Acute (10) Depression: Status: Acute (11) Anxiety: Status: Acute (12) S/P laparoscopy: Status: Acute (13) Intra-abdominal adhesions: Status: Acute Time Spent With Patient Time: Total time spent is greater than 50% in coordination of care (as documented) at patient's floor/unit and/or counseling patient: Quality Stroke Does the patient have a stroke diagnosis?: No VTE Prior VTE?: No VTE Risk Level:: Surgical - moderate VTE Device Contraindication: N/A - Device Ordered VTE Drug Contraindication: Treatment Not Indicated
[2022-02-02] MEDS: ceFAZolin Sodium/Dextrose,Iso 2 GM/50 ML PIGGYBACK IV ×2 (10:15→16:35)
[2022-02-02] MEDS: Famotidine/PF 20 MG/2 ML VIAL IVPUSH ×2 (13:15→20:21)
--- NOTE | 2022-02-02 13:15 | PM.DS ---
DS: Providers Provider Date of Service: 02/03/22 Date of admission: 02/02/22 08:43 Primary care physician: Murali Curry MD DS: Diagnosis Discharge Diagnosis (1) Obesity: Status: Acute (2) BMI 32.0-32.9,adult: Status: Acute (3) GERD (gastroesophageal reflux disease): Status: Acute (4) Hiatal hernia: Status: Acute (5) Asthma: Status: Acute (6) Cholelithiasis: Status: Acute (7) Sleep apnea: Status: Acute (8) BPH (benign prostatic hyperplasia): Status: Acute (9) Elevated cholesterol: Status: Acute (10) Depression: Status: Acute (11) Anxiety: Status: Acute DS: Summary Hospital Course Hospital Course: ADMITTING DIAGNOSIS: obesity, s/p sleeve gastrectomy, hyperlipidemia, anxiety and depression DISCHARGE DIAGNOSIS: same, s/p laparoscopic lysis of adhesions and upper endoscopy PAST SURGICAL HISTORY: sleeve gastrectomy 2014 PROCEDURE: upper endoscopy, laparoscopic lysis of adhesions DISCHARGE SUMMARY: History of Present Illness: The patient is a 66 year-old woman with a BMI of 35.8 kg/m2 and associated co-morbidities as described above. The patient had extensive work-up,lost 18.1 lbs preoperatively and was electively scheduled for laparoscopic, possible open revision of previous sleeve gastrectomy and gastropexy. Risks and complications of the surgery were discussed with the patient in advance, particularly the possibility of , pulmonary embolism, anastomotic leak, bleeding, bowel injury, GERD, cardiac, renal or pulmonary complications. The patient understood all the risks and was in agreement with the surgical plan. Hospital Course: The patient underwent an uneventful laparoscopic lysis of adhesions and upper endoscopy on the day of admission. Postoperatively, the patient was transferred to the surgical floor. The patient received IV Acetaminophen and IV dilaudid for pain control. Patient was started on bariatric phase 1 diet POD #0. On postoperative day one, the patient was feeling well without nausea, vomiting, fevers, or tachycardia. The patient had some mild incisional pain and the abdomen was soft. On the morning of postoperative day one, the patient was continued on 1 ounce of water or ice every half hour. During the day, the patient did fairly well, having some incisional pain, but able to ambulate adequately and to tolerate liquids well. Since the patient is doing well, we decided that the patient was ready to be discharged. The patient was given instructions to follow-up next week and to call my office for any fever over 101, persistent abdominal pain, nausea, vomiting, GERD, symptoms of DVT such as calf tenderness, or leg swelling, or pulmonary embolism such as chest pain or shortness of breath. The patient was also instructed to drink 40-60 ounces of liquids per day using the 1-ounce cups. The patient had been given prescriptions for Tylenol for pain, Zofran prn for nausea, and pantoprazole and carafate previously. The patient was encouraged to ambulate and use the incentive spirometer. The patient was allowed to shower, but no baths, and encouraged to stay active at home. All of these instructions were given to the patient personally. All questions were answered and the patient understood all instructions, the instructions were also given to the patient in print. Time Spent with Patient Time attestation: Total time spent providing and/or coordinating discharge services: Discharge coordination time: Less than 30 minutes Quality: Safe Use of Opioids Does Pt have an Active Cancer Diagnosis on the Problem List?: No Quality: Stroke Does the patient have a stroke diagnosis?: No Physical Exam Vital Signs: Vital Signs: Last Vital Signs Temp 98.1 F 02/02/22 09:12 Pulse 74 02/02/22 09:12 Resp 18 02/02/22 09:12 BP 129/79 02/02/22 09:12 Pulse Ox 98 02/02/22 09:12 O2 Del Method 02/02/22 09:12 BMI result Body Mass Index 32.5 DS: Data Data Completed and Pending Labs on day of discharge: Laboratory Results - last 24 hr 02/02/22 08:35 COVID-19 ([facility]) Negative COVID-19 Clin Com See Note Discharge Plan Discharge Anticipated Discharge Date/Time: 02/03/22 10:00 Patient Disposition: Home, Self-Care Discharge Diagnosis: s/p laparoscopy with lysis of adhesions Referrals: Murali Curry MD [Primary Care Provider] - 1 Week Discharge Medications: Continued thiamine HCl (vitamin B1) 50 mg tablet 50 mg PO DAILY Qty: 30 5RF bupropion HCl 150 mg tablet extended release 24 hr 150 mg PO QAM albuterol sulfate 90 mcg/actuation HFA aerosol inhaler 2 puff inhalation Q4H PRN (Reason: Wheezing) atorvastatin 80 mg tablet 80 mg PO DAILY azelastine 137 mcg (0.1 %) aerosol,spray 1 spray intranasal DAILY fluticasone propion-salmeterol [Wixela Inhub] 500-50 mcg/dose blister with device 1 ea PO BID sertraline 100 mg tablet 100 mg PO DAILY finasteride 5 mg tablet 5 mg PO DAILY lansoprazole 30 mg capsule,delayed release(DR/EC) 30 mg PO BID ondansetron HCl 4 mg tablet 4 mg PO Q12H Qty: 20 0RF Discontinued fludrocortisone 0.1 mg tablet 0.1 mg PO DAILY pantoprazole 40 mg tablet,delayed release (DR/EC) 40 mg PO DAILY Qty: 30 2RF sucralfate 100 mg/mL suspension 10 ml PO BID Qty: 400 2RF polyethylene glycol 3350 [Miralax] 17 gram powder in packet 17 g PO DAILY Qty: 14 0RF Rx Instructions: Mix each packet with 8oz of water and do 7 packets on 01/31/22 and another 7 packets on 02/01/22 Discharge Orders: Discharge Order (Routine); Ordered 02/03/22 Ordered By: Stevenson Ramos Activity on Discharge: No heavy lifting Stand Alone Forms: Patient Portal Discharge page Care Plan Goals: weight loss Health Concerns: obesity Plan of Treatment: No tub baths, sex or returning to work until discussed at first post op appointment. No exercise, alcohol, tobacco or illegal drug use. Continue to use incentive spirometer hourly while awake. Walk in home for 5- 10 minutes every 2 hours during the first week. Continue phase 1 diet today and start phase 2 diet tomorrow morning. Follow all instructions in the bariatric handbook and call with any questions. 1. Please call your doctor or come back to the emergency room should any new symptoms arise. 2. You will receive a courtesy call from [facility] 24-48 hours after discharge. 3. Activity: abstain from alcohol, practice limited stair climbing, no bending, no driving, no exercise, no illicit substances, no lifting, no sex, no tub bath, no work. 4. Diet: continue as discussed with bariatric team.. 5. Dressing Change/Wound Care: Do not change or remove surgical dressings unless they are wet or soiled. 6. Call your doctor if: - Your temperature exceeds 101.5 F - You experience excessive pain or swelling - You have an unexpected reaction to medication - You have excessive bleeding - You experience continued vomiting/nausea - Your incision begins to separate - Your incision shows signs of infection such as increased redness, swelling, excessive pain, heat, or drainage (light blood or clear fluid is normal) 7. General instructions: No lifting greater than 5 lbs for the next 4 weeks[address] within 24 hours of taking narcotic pain medications. If you do not move your bowels in the next 2 days, please take milk of magnesia over the counter. Please follow the post op diet and do not advance your diet until you are seen in the office in about 2 weeks. Please walk around your home every hour or two to prevent blood clots from forming in your legs. You do not need to wake from sleeping to walk. Please sleep in a bed or couch to prevent kinking at the hips and knees. Please take your incentive spirometer (your lung diabetes trainer) home with you and use it for the next few days to prevent pneumonias. You may shower, no hot tubs, baths or swimming pools. Please call the office with any questions or concerns such as increasing abdominal pain, fever, chills, shortness of breath, chest pain, leg pain or swelling, or redness or drainage from your incisions. Do not hesitate to contact the office with any questions at . The patient's medical history has been reviewed and they are considered low risk for post op DVT and therefore DVT prophylaxis is not considered necessary. Travel after surgery was reviewed. The patient has not disclosed any travel plans during the first 30 days after surgery and they have been advised that within the first 30 days after surgery any bus, plane, train or car travel over 2 hours in duration is contraindicated due to the possibility of developing blood clots from immobility. Any travel, needs to include periods of ambulation of 10 minutes in duration every 2 hours. The patient was instructed to discuss any plans for travel during this period with their bariatric surgeon. Assessment: stable, post op laparoscopic lysis of adhesions Discharge Date/Time: 02/03/22 09:21
[2022-02-02 13:42] LABS: Hematocrit 43.1 % (42.0-52.0); Hemoglobin 14.5 g/dl (14.0-18.0)
[2022-02-02 14:04] LABS: Anion Gap 19 (12-20); Blood Urea Nitrogen 16 mg/dL (9-16); Calcium 8.8 mg/dL (8.4-10.2); Carbon Dioxide 20 mmol/L (22-29); Chloride 104 mmol/L (96-108); Creatinine Clr Calc Pharmacy 65.7; Estimated Glomerular Filt Rate 57; Glucose Random 113 mg/dL (60-115); Potassium 5.5 mmol/L (3.3-5.1); Sodium 137 mmol/L (135-145)
[2022-02-02] MEDS: ondansetron HCL 4 MG/2 ML VIAL IVPUSH (18:16)
[2022-02-02] MEDS: 0.9 % Sodium Chloride 1,000 ML 100 ML IVCONT (20:21)
[2022-02-02] MEDS: 0.9 % Sodium Chloride Flush 3 ML SYRINGE IVFLUSH (20:22)
[2022-02-03] MEDS: ondansetron HCL 4 MG/2 ML VIAL IVPUSH (02:32)
[2022-02-03 03:41] VITALS: BP 118/60; PULSE 66; RESP 18; TEMP 36.4; O2SAT 94
[2022-02-03] MEDS: 0.9 % Sodium Chloride 1,000 ML 100 ML IVCONT (05:43)
[2022-02-03 06:21] LABS: MANUAL DIFF FLAG NO
[2022-02-03 06:36] LABS: Basophils Percent Auto 0.3 % (0-2); Hematocrit 39.1 % (42.0-52.0); Hemoglobin 13.2 g/dl (14.0-18.0); Imm Gran Abs Auto 0.04 X10*3/uL (0.00-0.03); Imm Gran Pct Auto 0.4 % (0.0-0.4); Lymphocytes Percent Auto 10.7 % (20-40); Mean Corpuscular HGB Conc 33.8 g/dl (31.0-36.0); Mean Corpuscular Hemoglobin 31.5 pg (27.0-33.0); Mean Corpuscular Volume 93.3 fL (80.0-98.0); Mean Platelet Volume 11.3 fL (9.4-12.4); Monocytes Absolute Auto 1.1 X10*3/uL (0.1-1.2); Monocytes Percent Auto 11.6 % (2-11); Platelet Count 204 X10*3/uL (160-400); Red Blood Count 4.19 X10*6/uL (4.60-5.80); Red Cell Distribution Width 12.9 % (11.0-16.0); White Blood Count 9.1 X10*3/uL (4.8-10.8)
[2022-02-03 06:55] VITALS: BP 138/63; PULSE 59; RESP 18; TEMP 35.8; O2SAT 97
[2022-02-03 06:57] LABS: Anion Gap 16 (12-20); Blood Urea Nitrogen 14 mg/dL (9-16); Calcium 8.4 mg/dL (8.4-10.2); Carbon Dioxide 22 mmol/L (22-29); Chloride 103 mmol/L (96-108); Estimated Glomerular Filt Rate > 60; Glucose Random 98 mg/dL (60-115); Potassium 4.5 mmol/L (3.3-5.1); Sodium 136 mmol/L (135-145)
[2022-02-03] MEDS: Sertraline HCL 100 MG TABLET PO (07:12)
[2022-02-03] MEDS: buPROPion HCl XL 150 MG TAB.ER.24H PO (07:12)
[2022-02-03] MEDS: Famotidine/PF 20 MG/2 ML VIAL IVPUSH (07:12)
--- NOTE | 2022-02-03 08:18 | HO.POSTANES ---
Post Anesthesia Evaluation Post Anesthesia Evaluation Vital Signs: Vital Signs Temp Pulse Resp BP Pulse Ox O2 Del Method 02/03/22 06:55 96.4 F L 59 18 138/63 97 Room Air 02/03/22 03:41 97.5 F 66 18 118/60 94 Room Air 02/02/22 23:13 98.3 F 80 18 136/74 93 Room Air Anesthesia: General Endotracheal-GETA Mental Status: Awake Pain Control: Satisfactory Nausea/Vomiting: None Hydration: Adequate Anesthesia-Related Issues: No Anes. Related Issues
--- NOTE | 2022-02-03 08:59 | MHC.CM.PN ---
IMM 02/03/22, EMR REVIEWED, CM MET W/PT AND SPOUSE [place] WHO IS AT BEDSIDE, PT REPORTS HE LIVES W/SPOUSE, IS INDEP W/ALL CARE/ACTIVITIES, PT DENIES USE OF DME AND HOME SERVICES AND DENIES NEED FOR SERVICES, PT VERIFIES CP IS ROSETTA VELAZQUEZ IN [facility] AND IS EDUCATED ON AND DECLINES TO COMPLETE A HCP AT THIS TIME. D/C PLAN: HOME NO SELF-CARE W/ [place] FOR TRANSPORT.
== END 2022-02-03 09:21 | disposition home or self-care (01) | DRG 621 ==
LOC: HO.SSSA 13:15 → HO.S3 16:14
PROVIDERS: Physician Assistant; Admitting Provider Surgery; PCP Internal Medicine; Visit Provider Surgery
PROC: 0DB64Z3 Excision of Stomach, Percutaneous Endoscopic Approach, Vertical (ICD-10-PCS; CPT 43845; principal; 2022-02-02 10:10)
DX: E66.01 Morbid (severe) obesity due to excess calories (principal); J45.909 Unspecified asthma, uncomplicated; K21.9 Gastro-esophageal reflux disease without esophagitis; F43.10 Post-traumatic stress disorder, unspecified; Z68.32 Body mass index [BMI] 32.0-32.9, adult; E78.5 Hyperlipidemia, unspecified; K66.0 Peritoneal adhesions (postprocedural) (postinfection); F32.A Depression, unspecified; F41.9 Anxiety disorder, unspecified; N40.0 Benign prostatic hyperplasia without lower urinary tract symptoms; Z20.822 Contact with and (suspected) exposure to COVID-19; Z87.891 Personal history of nicotine dependence; Z79.51 Long term (current) use of inhaled steroids; Z79.899 Other long term (current) drug therapy
CPT/HCPCS: 36415; 80048; 80053; 80061; 83036; 83525; 83970; 84443; 85014; 85018; 85025; 85610; 85730; 86140; 86850; 86870; 86885; 86900; 86901; 86902; 86905; 86920; 86922; 87635; A4649; C9088; J0131; J0690; J1100; J1170; J2250; J2370; J2405; J2550; J2765; J2795; J3010

== ENCOUNTER → 2022-03-01 08:22 | Outpatient (BNVA) | payer MEDICARE, SELFPAY | PROVIDERS: PCP Internal Medicine; Referring Provider Internal Medicine; Visit Provider Physician Assistant | DX: E66.9 Obesity, unspecified (principal); Z68.33 Body mass index [BMI] 33.0-33.9, adult; Z98.890 Other specified postprocedural states | CPT/HCPCS: 99212 ==